=== PATIENT | female | born 1970 | race Caucasian/White ===

== ENCOUNTER 2017-04-26 12:02 | Emergency (ER) | payer MEDICAID ==
[~2017-04-26] VITALS: Ht 157.5 cm; Wt 64.0 kg
[~2017-04-26 12:02] MED LIST: NO MEDS
[2017-04-26 15:19] LABS: BASOPHILS % 0.5 % (0.0-2.0); EOSINOPHILS % 0.3 % (0.0-5.0); HEMOGLOBIN. 13.1 g/dL (12.0-16.0); LYMPHOCYTES % 17.6 % (20.0-50.0); MEAN CORPUSCULAR VOLUME 87.1 fL (81.0-99.0); MEAN PLATELET VOLUME 8.5 fl (7.4-10.4); MONOCYTES % 5.7 % (2.0-8.0); NEUTROPHILS % 75.9 % (40.0-76.0); PLATELET 214 x1000/uL (130-400); RED BLOOD CELL COUNT 4.36 mill/uL (4.2-5.4); RED CELL DISTRIBUTION WIDTH 14.5 % (11.6-14.6)
[2017-04-26 15:22] LABS: CHLORIDE 105 mEq/L (98-107)
[2017-04-26 15:29] LABS: CARBON DIOXIDE 27 mEq/L (21-32)
[2017-04-26 16:04] LABS: CLARITY URINE CLOUDY (CLEAR); COLOR URINE ORANGE (YELLOW); GLUCOSE URINE NEGATIVE (NEGATIVE); KETONES URINE NEGATIVE (NEGATIVE); LEUKOCYTE ESTERASE URINE 2+ (NEGATIVE); NITRITE URINE NEGATIVE (NEGATIVE); OCCULT BLOOD URINE 3+ (NEGATIVE); PH URINE 7.5 (4.5-8.0); PROTEIN URINE TRACE (NEGATIVE); SPECIFIC GRAVITY URINE 1.017 (1.005-1.030); UROBILINOGEN URINE 0.2 E.U./dL (0.2-1.0)
[2017-04-26 16:30] VITALS: BP 101/77
== END 2017-04-26 16:55 | disposition home or self-care (01) ==
LOC: ER 15:32
DX: N39.0 Urinary tract infection, site not specified (principal); R03.0 Elevated blood-pressure reading, without diagnosis of hypertension
CPT/HCPCS: 36415; 80048; 81001; 85025; 99284; Z7610

== ENCOUNTER 2019-05-14 08:54 | Emergency (ER) | payer MEDICAID ==
[~2019-05-14] VITALS: Ht 165.1 cm; Wt 77.0 kg
[2019-05-14] MEDS ORDERED: HYDROCODONE/ACETAMINOPHEN 5/325MG TABLET PO ONE (11:10)
[2019-05-14] MEDS ORDERED: HYDROCODONE/ACETAMINOPHEN 5/325MG TABLET ONE (13:17)
[2019-05-14 13:20] VITALS: BP 129/81
== END 2019-05-14 13:28 | disposition home or self-care (01) ==
LOC: ER 09:04
DX: M71.21 Synovial cyst of popliteal space [Baker], right knee (principal)
CPT/HCPCS: 93971; 99284

== ENCOUNTER 2021-04-29 07:59 | Emergency (ER) | payer MEDICAID, OTHER ==
[~2021-04-29] VITALS: Ht 157.5 cm; Wt 72.0 kg
[2021-04-29] MEDS ORDERED: IBUPROFEN 600MG TABLET PO ONE (08:30)
[2021-04-29] MEDS ORDERED: IBUP-2029 MT (09:06)
[2021-04-29 10:24] VITALS: BP 133/72
== END 2021-04-29 10:26 | disposition home or self-care (01) ==
LOC: ER 07:59
DX: S40.012A Contusion of left shoulder, initial encounter (principal); I10 Essential (primary) hypertension; Z98.890 Other specified postprocedural states; W01.0XXA Fall on same level from slipping, tripping and stumbling without subsequent striking against object, initial encounter; Y93.89 Activity, other specified; Y92.89 Other specified places as the place of occurrence of the external cause; Y99.8 Other external cause status
CPT/HCPCS: 70160; 73030; 73562; 99284; A4565

== ENCOUNTER 2021-07-21 07:50 | Emergency (ER) | payer MEDICAID, OTHER ==
[~2021-07-21] VITALS: Ht 157.5 cm; Wt 76.0 kg
[~2021-07-21 07:50] MED LIST changes: +IBUP-2029 MT
[2021-07-21 07:57] VITALS: BP 131/81
[2021-07-21] MEDS ORDERED: IBUPROFEN 400MG TABLET PO ONE (09:30)
[2021-07-21] MEDS ORDERED: ACETAMINOPHEN 325MG TABLET PO ONE (09:45)
== END 2021-07-21 11:00 | disposition home or self-care (01) ==
LOC: ER 07:50
DX: M17.11 Unilateral primary osteoarthritis, right knee (principal); M16.11 Unilateral primary osteoarthritis, right hip; I10 Essential (primary) hypertension; Z98.890 Other specified postprocedural states
CPT/HCPCS: 73521; 73562; 99284

== ENCOUNTER 2022-12-09 12:50 | Emergency (ER) | payer MEDICAID ==
[~2022-12-09] VITALS: Ht 165.1 cm; Wt 85.0 kg
[2022-12-09 14:05] LABS: BASOPHILS % 0.4 % (0.0-2.0); EOSINOPHILS % 2.3 % (0.0-5.0); HEMATOCRIT. 37.1 % (36.0-48.0); HEMOGLOBIN. 12.7 g/dL (12.0-16.0); LYMPHOCYTES % 24.4 % (20.0-50.0); MEAN CORPUSCULAR HEMOGLOBIN 30.1 pg (28.0-32.0); MONOCYTES % 5.9 % (2.0-8.0); PLATELET 232 x1000/uL (130-400); RED BLOOD CELL COUNT 4.21 mill/uL (4.2-5.4); RED CELL DISTRIBUTION WIDTH 13.1 % (11.6-14.6)
[2022-12-09 14:25] LABS: CHLORIDE 105 mEq/L (98-107)
[2022-12-09] MEDS ORDERED: SODIUM CHLORIDE 0.9% 1,000 ML IV ONE (17:45)
[2022-12-09] MEDS ORDERED: ASPIRIN 325MG EC TABLET PO ONE (20:00)
[2022-12-10 02:12] VITALS: BP 151/78
== END 2022-12-10 03:43 | disposition short-term general hospital (02) ==
LOC: ER 12:50
DX: R42 Dizziness and giddiness (principal); R10.9 Unspecified abdominal pain
CPT/HCPCS: 36415; 70450; 71045; 80053; 83690; 84484; 85025; 93005; 96360; 99285; J7030; Z7610

== ENCOUNTER 2022-12-24 18:46 | Emergency (ER) | payer MEDICAID ==
[~2022-12-24] VITALS: Ht 162.6 cm; Wt 82.0 kg
[2022-12-24 18:50] VITALS: BP 148/78
[2022-12-25] MEDS ORDERED: CEPH500C2 PO (00:16)
[2022-12-25] MEDS ORDERED: CEPHALEXIN 250MG CAPSULE PO ONE (00:30)
== END 2022-12-25 00:29 | disposition home or self-care (01) ==
LOC: ER 18:46
DX: N39.0 Urinary tract infection, site not specified (principal)
CPT/HCPCS: 99283